=== PATIENT | female | born 1960 | race Caucasian/White ===

== ENCOUNTER 2025-09-19 23:46 | Inpatient (IN) | payer OTHER, SELFPAY ==
[2025-09-19 15:35] VITALS: BP 141/86
[2025-09-19 15:57] LABS: Hematocrit 46.8 % (37.0-47.0); Hemoglobin 15.4 g/dL (12.0-16.0); Mean Corp Hgb Conc. 32.9 g/dL (33.0-37.0); Mean Corpuscular Volume 90.5 fL (81.0-99.0); Nucleated Red Blood Cells % 0 %; Platelet Count 228 10^3/uL (130-400); Red Cell Dist. Width 13.2 % (11.5-14.5)
[2025-09-19 16:13] LABS: ALT (SGPT) 28 U/L (0-35); AST (SGOT) 27 U/L (14-36); Albumin 4.2 g/dl (3.5-5.0); Alkaline Phosphatase 63 U/L (38-126); Blood Urea Nitrogen 23 mg/dl (7-17); Calcium 9.0 mg/dl (8.4-10.2); Carbon Dioxide 25 mmol/L (22-30); Chloride 108 mmol/L (98-107); Glucose 84 mg/dl (70-99); Lipase 580 U/L (23-300); Potassium 4.5 mmol/L (3.5-5.1); Sodium 139 mmol/L (135-145); Total Protein 6.8 g/dl (6.3-8.2); eGFR > 60.00
[2025-09-19 16:52] LABS: Urine Character Clear (Clear)
--- NOTE | 2025-09-19 20:03 | ED.GENMED ---
History of Present Illness
General
Chief Complaint: Abdominal Symptoms
Source: patient
Time Seen by Provider: 09/19/25 19:56
History of Present Illness
History of Present Illness:
64-year-old female presents to the emergency room complaining of abdominal pain. The pain is located in the suprapubic region. It has been present for the past week. She initially saw her family doctor who prescribed Bactrim for suspected urinary
tract infection. However her urinalysis and urine culture were negative. They performed a pelvic exam at her primary care doctor's office which was unremarkable. They decided she should come to the emergency room for further evaluation. Patient
rates her pain 7 out of 10. She took Aleve for yesterday without improvement. She denies any nausea vomiting diarrhea or constipation. She does get interval colonoscopies. She denies any fever.
Phy Exam
Physical Exam
Physical Exam:
General: Awake, Alert, Oriented X3. No acute distress.
Vitals: unremarkable
Head: Atraumatic
Eyes: Pupils equal, EOMI
Throat: Airway intact, no exudates
Neck: Trachea midline
Lungs: Clear and equal b/l
Heart: Regular rate, no murmurs
Abd: Soft, moderate tenderness to palpation in the suprapubic region, no rebound, nonsurgical abdomen, No pulsatile mass
Neuro: Nonfocal
Skin: Warm, dry, no rash
Extremities: pulses equal b/l, no edema
Course
Orders/Labs/Results
Orders:
Orders
09/19/25 15:44
Complete Blood Count/With Diff Urgent
Comprehensive Metabolic Panel Urgent
Lipase Urgent
09/19/25 16:13
Urinalysis Reflex To Culture Urgent
Date Specimen was Collected: 09/19/25
Time Specimen was Collected: 15:39
09/19/25 20:03
CT Abd/Pel (IV only)-DH only Urgent
Comment:
Reason For Exam: Suprapubic abdominal pain
0.9% Sodium Chloride 1000 ml [Nss] 1,000 ml IV BOLUS
Ketorolac [Toradol] 15 mg IV NOW STA
09/19/25 23:46
Admit/Transfer Patient As Directed
Co-Sign Provider:
Level of Care: Inpatient admission
Assign to:: Medical/Surgical
Physician / Group: Filiberto
Diagnosis: abdominal pain
Reason for Hospitalization: partial small bowel obstruction
Expected length of stay greater than two midnights?: Yes
ELOS- Estimated Length of Stay in days: 2
I certify the patient meets the requirements for IP care: Yes
09/19/25 23:47
Code Status As Directed
Resuscitation Status: Full Code
PRN Pain Medication Management As Directed
May give lesser potent ordered pain med per pt: Yes
preference::
Protocol:: Medication orders for pain may be administered in a
manner that supports deferring to patient preference
when the pt is:
- Requesting an ordered lesser potent pain medication.
Least to most potent pain medications are defined
as: acetaminophen < NSAID < tramadol < opioids
(morphine, oxycodone, hydromorphone).
- Requesting a lesser dose of the same medication IF
ORDERED.
- Requesting a less intrusive route of administration
if both routes are prescribed by the provider (PO <
IV).
Abnormal Lab Results
09/19/25
15:44
MCHC 32.9 L g/dL
(33.0-37.0)
Monocytes % 10.1 H %
(1.7-9.3)
Chloride 108 H mmol/L
(98-107)
BUN 23 H mg/dl
(7-17)
Lipase 580 H U/L
(23-300)
09/19/25 15:44
09/19/25 15:44
Vital Signs
Initial and Last Documented VS:
Initial Vital Signs
Temp Pulse Resp BP Pulse Ox
98 F 76 16 141/86 94
09/19/25 15:35 09/19/25 15:35 09/19/25 15:35 09/19/25 15:35 09/19/25 15:35
Last Documented Vital Signs
Temp Pulse Resp BP Pulse Ox
98 F 69 18 129/73 95
09/19/25 15:35 09/19/25 23:13 09/19/25 23:13 09/19/25 23:13 09/19/25 23:13
MDM/Problems Addressed
Differential Diagnosis Includes:
Diverticulitis, diverticular abscess, colitis, mass
MDM/Problems Addressed:
Patient presents with lower abdominal pain. Urinalysis is unremarkable. Chemistry show mild prerenal azotemia and a mild elevation of lipase. Do not believe patient has pancreatitis as she does not have upper abdominal pain nor does she have
vomiting. CBC is basically unremarkable. CT of the abdomen pelvis shows small bowel dilation and inflammation. Radiology the likelihood of other entities in the differential is insufficient to justify any other testing at this time. This was
explained to the patient. Patient was advised that persistent or worsening symptoms will require further workup. Inflammatory process, infectious process or even an internal hernia. Clinically I do not believe the patient has an internal hernia.
Will hospitalize the patient for bowel rest, further evaluation.
*Radiology
Radiology exam reviewed: radiology read reviewed
*Pulse Oximetry
SaO2: 94
Oxygen Mode of Delivery: Room air
Patient hypoxic: no
*Critical Care Note
Total Time (30-74mins, 75-104mins- exclusive of procedures): Not Applicable
ED Attending Note
-
Portions of this chart may have been created with voice recognition software.� Occasional wrong word or��sound alike� substitutions may have occurred due to the inherent limitations of voice recognition software.
Discharge Plan
Departure
Patient Disposition: Admit
Date of Disposition: 09/19/25
Time of Disposition: 22:38
Presentation/result/management discussed w/ accepting MD/DO: Hospitalist
Condition: Fair
Discharge Problem:
Abdominal pain, Partial small bowel obstruction
Prescriptions:
No Action
No Current Medications
0
Referrals:
Marci Ruiz MD [Family Provider, Family Practice]
Interventions
Interventions:
*Risk Screen - Suicide Last Done: 09/19/25 15:35
*General Assessment Last Done: 09/19/25 15:35
*Neglect/Abuse Screening Last Done: 09/19/25 15:35
*ED- Fall Risk Assessment Last Done: 09/19/25 21:00
*ED COVID-19 Vaccine History Last Done: 09/19/25 21:00
*ED Influenza Vaccine History Last Done: 09/19/25 21:00
BF-Xsfkki-Pqlgofvnoe Assessment Last Done: 09/19/25 21:03
Discharge Date and Time
Print Language: [place] CITIZEN
[2025-09-19] MEDS: TORADOL 15 MG IV (20:22)
[2025-09-19] MEDS: NSS 1000 IV (20:22)
[2025-09-19 20:38] VITALS: BP 132/93
[2025-09-19 20:59] VITALS: BMI 28.8
[2025-09-19 23:13] VITALS: BP 129/73
--- NOTE | 2025-09-19 23:23 | HPS.HSE ---
Family Physician
-
Family Physician: Marci Ruiz MD
Chief Complaint
-
Abdominal pain
History of Present Illness
This is a 64-year-old female with past medical history significant for history of migraines, osteopenia who presents to the emergency department with abdominal pain.
Patient reports suprapubic abdominal discomfort that has been present for about 1 week. She reports the pain is localized to the suprapubic region. It is worse when she bends to sit. She states it is also worse with walking. She denies any
dysuria. She denies any flank pain. She denies any hematuria. She denies any incontinence of the bladder or bowel. She has not been having any constipation. Seen by PMD and was treated expectantly with Bactrim for suspected UTI. UA and urine
cultures were negative. Pelvic exam was performed by PMD that was unremarkable. She had no vaginal discharge. She came to the emergency department today to seek further evaluation. She reports pain is a 7 out of 10. Did take Aleve without any
improvement. She has not been having any nausea or vomiting. She is able to tolerate p.o. she denies any history of gallstones. She denies any history of alcohol abuse. She denies any prior intra-abdominal surgeries. She denies any history of
IBD or diverticulitis. She has had screening colonoscopies without any abdominal findings.
Emergency Department patient was afebrile, blood pressure was 128/72 with a pulse of 69 and a which she was satting 98% on room air. CBC was unremarkable. Electrolyte BUN/creatinine were all normal. LFTs were normal. Lipase was elevated at 580.
UA was unremarkable.
CT of the abdomen pelvis showing consistent with delayed intestinal transit. Mild enhancing wall thickening. Possible low-grade obstruction. In the vicinity, there are numerous small bowel loops in close proximity with the suggestion of possibility
of subtle edema of the associated small bowel mesentery. This could raise possibility of adhesion or internal hernia. Otherwise, an infectious or inflammatory etiology cannot be excluded. A neoplastic process is felt to be unlikely.
Medical History
Past Medical History
Past Medical History: Reports Other (Osteopenia, migraines,)
Past Surgical History: Reports Orthopedic, Tonsilectomy and Other (Rhinoplasty)
Social History
Tobacco: Non-smoker
Alcohol: None
Drug: None
Family History
Family History: Not pertinent
Allergies / Home Medications
Allergies reflects when Allergies were last updated in [employer].
Home Medications with original date entered in [employer]
Allergy/Medication List:
Allergies
Allergy/AdvReac Type Severity Reaction Status Date / Time
phenazopyridine (From Allergy Mild stomach Verified 09/19/25 15:39
Pyridium) and chest
pain,
vomiting
Home Medications
No Meds [No Current Medications] 09/19/25
Review of Systems
-
Constitutional: Reports No Symptoms
EENT: Reports No Symptoms
Respiratory: Reports No Symptoms
Cardiac: Reports No Symptoms
Abdomen/GI: Reports Abdominal Pain
: Reports No Symptoms
Musculoskeletal: Reports No Symptoms
Skin: Reports No Symptoms
Neurological: Reports No Symptoms
Endocrine: Reports No Symptoms
Hematologic/Lymphatic: Reports No Symptoms
Psych: Reports No Symptoms
Physical Exam
Vital Signs
Vital Signs
Temp Pulse Resp BP Pulse Ox
98 F 69 18 129/73 95
09/19/25 15:35 09/19/25 23:13 09/19/25 23:13 09/19/25 23:13 09/19/25 23:13
Physical Exam
General: Well Developed, Well Nourished and No Apparent Distress
HEENT: NormoCephalic, Moist mucous membranes and Atraumatic
Respiratory: Clear
Cardiac: S1/S2 and Regular Rhythm; No Murmur or Rub
GI: Soft, Non Tender, Non Distended and Normal Bowel Sounds; No Organomegaly
Rectal: Deferred by Provider
Musculoskeletal: No Clubbing, No Cyanosis and No Edema
Skin: No Rash
Neuro: AO x 3 and Nonfocal/grossly intact
Hematologic/Lymphatic: No Lymphadenopathy
Psych: Calm
Laboratory Results
-
09/19/25 15:44
09/19/25 15:44
Laboratory Results
Total Bilirubin 0.3 mg/dl (0.2-1.3) 09/19/25 15:44
AST 27 U/L (14-36) 09/19/25 15:44
ALT 28 U/L (0-35) 09/19/25 15:44
Alkaline Phosphatase 63 U/L (38-126) 09/19/25 15:44
Lipase 580 U/L (23-300) H 09/19/25 15:44
Data Reviewed
-
CT Scan: Report Reviewed by me
Lab Data: Labs Reviewed by me
Impression/Plan
-
IMPRESSION:
64-year-old with past medical history only significant for migraine headaches presents to the emergency department with lower abdominal/pelvic pain that has been going on for about 1 week with negative workup for UTI, kidney stones or any other
genitourinary processes. Pelvic exam was negative by PMD. In the emergency department her labs were notable for a lipase of [address] scan only shows the possibility of subtle edema of the associated small bowel mesentery
with numerous small bowel loops and area with mild enhancing wall thickening. All of this is suggestive of possible low-grade or early small bowel obstruction. Otherwise an infectious or inflammatory etiology cannot be excluded. Less likely
neoplastic process. Patient self has no known risk factors for pancreatitis. She has been having regular bowel movements and passing gas without any nausea or vomiting.
PLAN:
Abdominal pain -CT scan suggestive of early/partial SBO. Lipase elevated for ED but no risk factors for pancreatitis and patient does not have any epigastric discomfort.
- Admit to MedSurg
- Clear liquid diet for now
- Gentle hydration overnight
- Abdominal flatplate in a few hours to evaluate for any increase in loops of small bowel, if there is then a repeat scan for SBO
- etiology is unclear and no direct evidence of SBO at this time consult surgery in a.m.
- Pancreatitis with elevated lipase without any LFT abnormalities, no biliary abnormalities, no alcohol, no prescriptions and slightly no GLP agonist. No epigastric discomfort. Picture does not fit classic pancreatitis but cannot rule out a
chronic pancreatitis entirely. Without classic risk factors we will check lipid panel, possible workup for autoimmune pancreatitis if lipid panel is negative. Will repeat lipase level in a.m. to verify positive test.
- given location possible interstitial cystitis but denies any other urinary symptoms and u/a is completely bland so unlikekly.
DVT prophylaxis�SCDs for now
CODE STATUS�full code
[2025-09-20] MEDS: TYLENOL 650 MG PO (01:12)
[2025-09-20 01:21] VITALS: BP 149/79; BMI 28.1
[2025-09-20] MEDS: LR 1000 IV ×2 (02:30→17:36)
[2025-09-20] MEDS: FLUSH (NSS) 1 FLUSH IV (02:31)
--- NOTE | 2025-09-20 02:46 | PTCARENOTE ---
Pt received from ER aaox3 able to make her needs known.Denies pain. Pt oriented to room & call holley in reach.Plan of care continued.
[2025-09-20 07:16] LABS: Hematocrit 45.5 % (37.0-47.0); Hemoglobin 15.4 g/dL (12.0-16.0); Mean Corp Hgb Conc. 33.8 g/dL (33.0-37.0); Mean Corpuscular Volume 89.7 fL (81.0-99.0); Platelet Count 199 10^3/uL (130-400); Red Cell Dist. Width 13.2 % (11.5-14.5)
[2025-09-20 07:40] VITALS: BP 141/81
[2025-09-20 07:49] LABS: ALT (SGPT) 28 U/L (0-35); AST (SGOT) 27 U/L (14-36); Albumin 3.9 g/dl (3.5-5.0); Alkaline Phosphatase 59 U/L (38-126); Amylase 59 U/L (30-110); Blood Urea Nitrogen 14 mg/dl (7-17); Calcium 9.0 mg/dl (8.4-10.2); Carbon Dioxide 26 mmol/L (22-30); Chloride 108 mmol/L (98-107); Estimated Creatinine Clearance 71 ml/min; Glucose 95 mg/dl (70-99); Lipase 380 U/L (23-300); Potassium 4.3 mmol/L (3.5-5.1); Sodium 136 mmol/L (135-145); Total Protein 6.6 g/dl (6.3-8.2); Triglycerides 238 mg/dl (10-149); eGFR > 60.00
--- NOTE | 2025-09-20 11:05 | CON.GS ---
Addendum entered and electronically signed by Js Castillo MD 09/20/25 15:02:
Patient seen and examined with surgical PA. Agree with documented consultation note with additions/details noted here.
HPI: 64-year-old female who was in her usual baseline state of health until over a week ago when she developed a 'twinge' of lower abdominal suprapubic pain. She has had a previous history of UTIs and therefore she thought this was signs of a
recurrent UTI. She saw her primary care and was started on Bactrim but the urinalysis was negative. The twinge of pain has become a bit more severe and bothersome. She followed back up with her primary care who advised her to go to the emergency
department for evaluation.
There is no association of her symptoms with dietary intake. She states that her appetite has been strong and at baseline. No anorexia. No nausea. No vomiting. Her bowels are moving regularly and without any associated constipation diarrhea or
change. No abdominal distention or bloating.
Past abdominal surgical history only notable for tubal ligation. Past medical history osteopenia migraines as well as UTI.
AFVSS
NAD AAO x 3 comfortably resting in her hospital bed
ABD: Soft, nondistended and nontender on palpation in all quadrants and suprapubic area.
CT imaging personally reviewed. Fairly unremarkable. Radiologist reports possible mild enhancement of the small bowel but I do not see any significant thickening, no free fluid. Within the limits of noncontrast imaging there are no signs of
obstruction. No abdominal wall hernias.
Assessment/plan: Advised patient that based on CT imaging I am uncertain as to the etiology of her symptoms. There are no clinical or radiographic signs suggestive of obstruction. Her symptoms are not biliary in nature.
I would recommend p.o. challenge with dietary advancement as tolerated. If there is recurrent symptoms then would favor repeat contrast imaging with CT abdomen pelvis with oral and IV contrast from a GI standpoint.
Original Note:
Documented by User: Sepideh Ta PA-C 09/20/25 13:16
Consultation
-
Date/Time Consultation Requested: 09/20/2025, 07:30
Date/Time Consultation Performed: 09/20/2025, 12:00
Requesting Provider: Trini De Los aSntos MD
Performing Provider: Js Castillo MD
Reason for Consultation: sbo
Medical History
-
Chief Complaint: abdominal pain
History of Present Illness:
64 yo female presents to the ER due to abdominal pain. She states it started about a week ago and initially she thought it was UTI. She saw her PCP, who prescribed Bactrim for 5 days. A UA was performed which was negative. The pain started as a
'twinge' but became more consistent. It was located in her pelvis and occasionally spread to the left flank. The day she went to the ER, due to severity and persistance, she came to the ER. Denies nasuea or vomiting. Her stools are normal and not
loose. She is tolerating a diet. Urinating without difficulty. Eating does not make the pain worse.
In the ER, her WBC Is 6.2. Her vitals are normal. CT A/P shows: Abnormal small bowel, as described, consistent with delayed intestinal transit. Mild enhancing wall thickening. Possible low-grade obstruction. In the vicinity, there are numerous small
bowel loops in close proximity with the suggestion of possibility of subtle edema of the associated small bowel mesentery. This could raise possibility of adhesion or internal hernia. Otherwise, an infectious or inflammatory etiology cannot be
excluded. A neoplastic process is felt to be unlikely. Given these findings, we have been consulted for further surgical opinion.
Past Medical History
Past Medical History: Other (Osteopenia, migraines)
Past Surgical History: Other (Orthopedic, Tonsilectomy, Rhinoplasty)
Social History
Tobacco: Non-Smoker
Alcohol: None
Drug: None
Family History
Family History: Reviewed & Not Pertinent
Allergies / Home Medications
Allergy/AdvReac Type Severity Reaction Status Date / Time
phenazopyridine (From Allergy Mild stomach Verified 09/19/25 15:39
Pyridium) and chest
pain,
vomiting
�Medication �Instructions �Recorded �Confirmed �Type
No Meds [No Current Medications] 09/19/25 09/19/25 History
Review of Systems
-
History Source: Patient
Abdomen/GI: Abdominal Pain
A 10 point review of systems was completed, and was negative except as per HPI.
Physical Exam
Vital Signs
Temp Pulse Resp BP Pulse Ox
97.8 F 63 16 141/81 96
09/20/25 07:40 09/20/25 07:40 09/20/25 07:40 09/20/25 07:40 09/20/25 07:40
09/19/25 09/20/25 09/21/25
06:59 06:59 06:59
Actual Weight 76.714 kg
Body Mass Index (BMI) 28.1
Lab Results
09/20/25 07:04
09/20/25 07:04
WBC 6.2 10^3/uL (4.8-10.8) 09/20/25 07:04
Hgb 15.4 g/dL (12.0-16.0) 09/20/25 07:04
Hct 45.5 % (37.0-47.0) 09/20/25 07:04
Plt Count 199 10^3/uL (130-400) 09/20/25 07:04
Abs Immat Gran (auto) 0.0 10^3/uL (0-0.05) 09/19/25 15:44
Neutrophils % 46.2 % (42.2-75.2) 09/19/25 15:44
Physical Exam
General: Well Developed, Well Nourished and No Apparent Distress
GI: Soft, Non Distended and Tender (suprapubic)
Skin: Warm and Dry
Neuro: AO x 3
Psych: Calm
Data Reviewed
-
CT Scan: Image Personally Visualized and interpreted and Report Reviewed by me
Labs: Labs Reviewed by me and Discussed with Physician
Old Records: Reviewed
Assessment / Plan
-
Assessment: 64 yo female with lower midline pelvic pain x 1 week presents to [facility], found to have abnormal small bowel, as described, consistent with delayed intestinal transit. Mild enhancing wall thickening. Possible low-grade
obstruction. In the vicinity, there are numerous small bowel loops in close proximity with the suggestion of possibility of subtle edema of the associated small bowel mesentery. This could raise possibility of adhesion or internal hernia. Otherwise,
an infectious or inflammatory etiology cannot be excluded. A neoplastic process is felt to be unlikely.
Plan:
-Difficult to determine etiology due to lack of oral contrast, however, it is reassuring that she has no post prandial pain, as well as bowel function and a normal wbc
-Okay for a diet from our standpoint. If she has a post prandial flair, recommend CT with oral contrast.
-No plans for surgery at this time
-Trend labs
-We will follow

Documented by User: Js Castillo MD 09/20/25 14:57
Assessment / Plan
-
Assessment: 64 yo female with lower midline pelvic pain x 1 week presents to [facility], found to have abnormal small bowel, as described, consistent with delayed intestinal transit. Mild enhancing wall thickening. Possible low-grade
obstruction. In the vicinity, there are numerous small bowel loops in close proximity with the suggestion of possibility of subtle edema of the associated small bowel mesentery. This could raise possibility of adhesion or internal hernia. Otherwise,
an infectious or inflammatory etiology cannot be excluded. A neoplastic process is felt to be unlikely.
Plan:
-Difficult to determine etiology due to lack of oral contrast, however, it is reassuring that she has no post prandial pain, as well as bowel function and a normal wbc
-Okay for a diet from our standpoint. If she has a post prandial flair, recommend CT with oral contrast.
-No plans for surgery at this time
-Trend labs
--- NOTE | 2025-09-20 13:49 | W.PN.HOSP.TC ---
Today's Communication/Plan
-
ADAT
if worsening abd pain - CT with oral cont
Assessment / Plan
Assessment / Plan
Physical Exam
General: Well Developed, Well Nourished and No Apparent Distress
HEENT: NormoCephalic, Moist mucous membranes and Atraumatic
Respiratory: Clear
Cardiac: S1/S2 and Regular Rhythm; No Murmur or Rub
GI: Soft, Non Tender, Non Distended and Normal Bowel Sounds; No Organomegaly
Rectal: Deferred by Provider
Musculoskeletal: No Clubbing, No Cyanosis and No Edema
Skin: No Rash
Neuro: AO x 3 and Nonfocal/grossly intact
Hematologic/Lymphatic: No Lymphadenopathy
Psych: Calm
Abdominal pain -CT scan suggestive of early/partial SBO v enteritis
-having BMs, passing flatus
-Lipase elevated for ED but no risk factors for pancreatitis and patient does not have any epigastric discomfort.
- Admit to MedSurg
-ADAT - Low residue diet
-IVF
-CT with oral contrast if further bouts
-Repeat Abd XR tomorrow AM
- Gentle hydration overnight
-no urinary symptoms
#Incidental small 5 mm low-attenuation left renal cortical structure which cannot be further characterized.
-Although likely benign, recommend follow-up in one year.
DVT prophylaxis�HSQ
CODE STATUS�full code
Anticipated Discharge: 24 - 48 hours
Subjective/Interval History
-
Date of Service: September 20, 2025
slightly improved symptoms
Objective Data
-
Labs:
Laboratory Results
09/20/25
07:04
WBC 6.2
Hgb 15.4
Hct 45.5
Plt Count 199
Sodium 136
Potassium 4.3
Chloride 108 H
Carbon Dioxide 26
BUN 14
Creatinine 0.8
Glucose 95
Calcium 9.0
Total Bilirubin 0.7
AST 27
ALT 28
Alkaline Phosphatase 59
Vital Signs:
Vital Signs
Temp Pulse Resp BP Pulse Ox
97.8 F 63 16 141/81 96
09/20/25 07:40 09/20/25 07:40 09/20/25 07:40 09/20/25 07:40 09/20/25 07:40
I&O
09/19/25 09/20/25 09/21/25
06:59 06:59 06:59
Intake Total 0 / 0
Balance 0 / 0
Review of Systems
-
History Source: Patient
All other systems: Not reviewed unless documented
Data Reviewed
-
Diagnostic Radiology: Report Reviewed by me
CT Scan: Report Reviewed by me
Labs: Labs Reviewed by me
[2025-09-20 15:40] VITALS: BP 140/88
--- NOTE | 2025-09-20 16:13 | CM ---
Initial assessment completed with patient who lives with her in a 2 story plus basement home with B/B on 2nd and 1/2 bath on 1st, 2 steps to enter. 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 Has crutches from a
past injury. No in-home services. Does have HC-POA. No VA benefits. No psychiatric hospitalizations. PCP is Dr. Marci Ruiz. Pharmacy is [facility] in [place]. Discharge POC: Anticipate home with no needs.
[2025-09-20] MEDS: HEPARIN 5000 UNITS SC ×2 (16:22→23:28)
--- NOTE | 2025-09-20 16:54 | PTCARENOTE ---
Patient ambulating in room with a steady gait. Patient tolerating Full iquid meal. Minimal c/o lwer abdomen tenderness, denies need for pain med. Patient had BM and is passing flatus.
[2025-09-20 23:33] VITALS: BP 147/95
[2025-09-21 07:12] LABS: Hematocrit 43.7 % (37.0-47.0); Hemoglobin 14.8 g/dL (12.0-16.0); Mean Corp Hgb Conc. 33.9 g/dL (33.0-37.0); Mean Corpuscular Volume 87.4 fL (81.0-99.0); Platelet Count 207 10^3/uL (130-400); Red Cell Dist. Width 13.0 % (11.5-14.5)
[2025-09-21 07:28] LABS: ALT (SGPT) 29 U/L (0-35); AST (SGOT) 26 U/L (14-36); Albumin 3.6 g/dl (3.5-5.0); Alkaline Phosphatase 65 U/L (38-126); Blood Urea Nitrogen 14 mg/dl (7-17); Calcium 9.1 mg/dl (8.4-10.2); Carbon Dioxide 28 mmol/L (22-30); Chloride 105 mmol/L (98-107); Estimated Creatinine Clearance 63 ml/min; Glucose 94 mg/dl (70-99); Potassium 4.2 mmol/L (3.5-5.1); Sodium 135 mmol/L (135-145); Total Protein 6.2 g/dl (6.3-8.2); eGFR > 60.00
[2025-09-21 07:30] VITALS: BP 130/90
[2025-09-21] MEDS: HEPARIN 5000 UNITS SC (09:52)
--- NOTE | 2025-09-21 11:54 | W.PN.HOSP.TC ---
Addendum entered and electronically signed by Americo Marie MD 09/21/25 14:49:
[id number]
Addendum entered and electronically signed by Americo Marie MD 09/21/25 14:33:
X-ray with moderate stool burden, no obstruction. Advised patient for bowel regimen on discharge. Tolerated diet well, no abdominal pain, nondistended, nontoxic, having adequate bowel movements. Can be discharged with close follow-up.
Original Note:
Today's Communication/Plan
-
LRD
Abd XR
if tolerating diet, can dc
f/u gi outpt, pcp outpt
Assessment / Plan
Assessment / Plan
Physical Exam
General: Well Developed, Well Nourished and No Apparent Distress
HEENT: NormoCephalic, Moist mucous membranes and Atraumatic
Respiratory: Clear
Cardiac: S1/S2 and Regular Rhythm; No Murmur or Rub
GI: Soft, Non Tender, Non Distended and Normal Bowel Sounds; No Organomegaly
Rectal: Deferred by Provider
Musculoskeletal: No Clubbing, No Cyanosis and No Edema
Skin: No Rash
Neuro: AO x 3 and Nonfocal/grossly intact
Hematologic/Lymphatic: No Lymphadenopathy
Psych: Calm
Abdominal pain -CT scan suggestive of early/partial SBO v enteritis
� Patient tolerating diet, no abdominal pain
-having BMs, passing flatus
-Lipase elevated for ED but no risk factors for pancreatitis and patient does not have any epigastric discomfort.
- Tolerating diet, advance to low residue. If tolerating, can discharge on low residue for 1 to [address] weeks
[address] with oral contrast if further bouts
-Repeat Abd XR
- Gentle hydration overnight
-no urinary symptoms
� Follow-up GI outpatient
#Incidental small 5 mm low-attenuation left renal cortical structure which cannot be further characterized.
-Although likely benign, recommend follow-up in one year.
DVT prophylaxis�HSQ
CODE STATUS�full code
More than 30 minutes spent in discharge including
Final examination of the patient
Summarizing hospital stay
Instructions for continuing care to all relevant caregivers
Preparation of discharge records, prescriptions, and referral forms
Total time spent (in minutes): 36
Anticipated Discharge: Today
Subjective/Interval History
-
Date of Service: September 21, 2025
Abdominal pain resolved, tolerating diet. Having regular bowel movements
Objective Data
-
Labs:
Laboratory Results
09/21/25
06:11
WBC 6.5
Hgb 14.8
Hct 43.7
Plt Count 207
Sodium 135
Potassium 4.2
Chloride 105
Carbon Dioxide 28
BUN 14
Creatinine 0.9
Glucose 94
Calcium 9.1
Total Bilirubin 0.7
AST 26
ALT 29
Alkaline Phosphatase 65
Vital Signs:
Vital Signs
Temp Pulse Resp BP Pulse Ox
98.1 F 64 16 130/90 97
09/21/25 07:30 09/21/25 07:30 09/21/25 07:30 09/21/25 07:30 09/21/25 07:30
I&O
09/20/25 09/21/25 09/22/25
06:59 06:59 06:59
Intake Total 0 / 0 1779
Balance 0 / 0 1779
Review of Systems
-
History Source: Patient
All other systems: Not reviewed unless documented
Data Reviewed
-
Diagnostic Radiology: Report Reviewed by me
CT Scan: Report Reviewed by me
Labs: Labs Reviewed by me
--- NOTE | 2025-09-21 11:56 | W.DS.TRANS ---
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
-
Discharge Instructions:
Discharge Diagnosis/Procedures Ileus versus ileitis versus partial small bowel
obstruction
Diet Low Residue
Activity As tolerated
Blood Work CBC and BMP within 1 week
Instructions:
Stand-Alone Forms:
Changes to Home Medications: No
Discharge Medications:
DC Medications w/original date entered in [facility]
No Meds [No Current Medications] 09/19/25
Home Medication Changes
na
Pending Results: No
--- NOTE | 2025-09-21 12:33 | W.DS.TRANS ---
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
-
Discharge Instructions:
Discharge Diagnosis/Procedures Ileus versus ileitis versus partial small bowel
obstruction
Diet Low Residue
Activity As tolerated
Blood Work CBC and BMP within 1 week
Instructions:
Stand-Alone Forms:
Changes to Home Medications: No
Discharge Medications:
DC Medications w/original date entered in [facility]
No Meds [No Current Medications] 09/19/25
Home Medication Changes
na
Pending Results: No
[2025-09-21] MEDS: LR IV (13:09)
[2025-09-21] MEDS: MIRALAX 17 GRAMS PO (14:49)
[2025-09-21 15:30] VITALS: BP 134/85
--- NOTE | 2025-09-21 16:21 | PTCARENOTE ---
Patient had two formed BM today. Miralax given per physician order. Patient tolerated second Low Residue meal.
== END 2025-09-21 16:22 | disposition home or self-care (01) | DRG 392 ==
LOC: 4 EAST ACU 23:46
PROVIDERS: Student in an Organized Health Care Education/Training Program; ADMITTING PHYSICIAN Internal Medicine; ATTENDING PHYSICIAN Internal Medicine; EMERGENCY PHYSICIAN Emergency Medicine; FAMILY PHYSICIAN Family Medicine; OTHER PHYSICIAN Surgery
DX: K52.9 Noninfective gastroenteritis and colitis, unspecified (principal); K56.7 Ileus, unspecified; G43.909 Migraine, unspecified, not intractable, without status migrainosus; M85.80 Other specified disorders of bone density and structure, unspecified site; Z79.899 Other long term (current) drug therapy; Z87.440 Personal history of urinary (tract) infections
CPT/HCPCS: 74018; 74177; 80048; 80053; 80076; 81003; 82150; 83605; 83690; 84478; 85025; 85027; 96361; 96374; 99284; Q9967